=== PATIENT | female | born 1970 | race Caucasian/White ===

== ENCOUNTER 2020-09-30 09:36 | Outpatient (CLI) | payer OTHER ==
[2020-09-30 13:21] LABS: SARS-CoV-2 NAA Rapid Test Not Detected (NotDetected)
== END 2020-09-30 09:37 | disposition home or self-care (01) ==
LOC: LABBT 09:36
PROVIDERS: ATTEND Orthopaedic Surgery
DX: Z01.812 Encounter for preprocedural laboratory examination (principal); S82.51XA Displaced fracture of medial malleolus of right tibia, initial encounter for closed fracture; Z20.822 Contact with and (suspected) exposure to COVID-19
CPT/HCPCS: U0002

== ENCOUNTER 2020-10-01 06:04 | Day surgery (SDC) | payer OTHER ==
[2020-09-30 13:17] VITALS: BMI 34.7
[2020-10-01] MEDS ORDERED: Fentanyl 100 MCG/2 ML VIAL ONE ×3 (06:33→08:43)
[2020-10-01] MEDS ORDERED: Midazolam HCl 2 mg/2 ml Vial ONE (06:53)
[2020-10-01] MEDS ORDERED: Dexamethasone 4 mg/ml Vial ONE (06:53)
[2020-10-01] MEDS ORDERED: Scopolamine 1.5 mg/72 hour Patch ONE (07:03)
[2020-10-01] MEDS ORDERED: Ketorolac Tromethamine 30 MG/ML VIAL ONE (07:37)
[2020-10-01] MEDS ORDERED: PROPOFOL 200 MG/20 ML VIAL ONE (07:37)
[2020-10-01] MEDS ORDERED: Ondansetron PF 4 MG/2 ML Vial ONE (07:37)
[2020-10-01] MEDS ORDERED: Bupivacaine HCl 0.5%/Epinephrine 1:200,000/PF 30 ml Vial ONE (07:37)
[2020-10-01] MEDS ORDERED: HYDROcodone/Acetaminophen 5/325 mg Tablet ONE (09:52)
== END 2020-10-01 10:50 | disposition home or self-care (01) ==
LOC: SDC 06:04
PROVIDERS: ATTEND Orthopaedic Surgery
PROC: 0QSG04Z Reposition Right Tibia with Internal Fixation Device, Open Approach (ICD-10-PCS; principal; 2020-10-01)
DX: S82.51XA Displaced fracture of medial malleolus of right tibia, initial encounter for closed fracture (principal); G43.909 Migraine, unspecified, not intractable, without status migrainosus; I10 Essential (primary) hypertension; Z79.1 Long term (current) use of non-steroidal anti-inflammatories (NSAID); Z79.899 Other long term (current) drug therapy; Z91.040 Latex allergy status; Z91.041 Radiographic dye allergy status; W13.8XXA Fall from, out of or through other building or structure, initial encounter
CPT/HCPCS: 76000; C1713; J0690; J1100; J1885; J2250; J2405; J2704; J3010

== ENCOUNTER 2021-02-04 11:02 | Outpatient (CLI) | payer OTHER ==
[2021-02-04 23:19] LABS: SARS-CoV-2 PCR by NAA Not Detected (NotDetected)
== END 2021-02-04 11:03 | disposition home or self-care (01) ==
LOC: LABBT 11:02
PROVIDERS: ATTEND Orthopaedic Surgery
DX: Z01.812 Encounter for preprocedural laboratory examination (principal); T85.848A Pain due to other internal prosthetic devices, implants and grafts, initial encounter; Z20.822 Contact with and (suspected) exposure to COVID-19
CPT/HCPCS: U0003; U0005

== ENCOUNTER 2021-02-08 10:33 | Day surgery (SDC) | payer OTHER ==
[2021-02-07 13:22] VITALS: BMI 34.7
[2021-02-08] MEDS ORDERED: Lidocaine 1% (PF) 30 ML VIAL ONE (12:12)
[2021-02-08] MEDS ORDERED: Midazolam HCl 2 mg/2 ml Vial ONE (12:20)
[2021-02-08] MEDS ORDERED: Famotidine/PF 20 mg/2ml Vial ONE (12:20)
[2021-02-08] MEDS ORDERED: Scopolamine 1.5 mg/72 hour Patch ONE (12:20)
[2021-02-08] MEDS ORDERED: HYDROmorphone 2 MG/ML VIAL ONE (12:25)
[2021-02-08] MEDS ORDERED: Fentanyl 100 MCG/2 ML VIAL ONE ×4 (12:25→14:36)
[2021-02-08] MEDS ORDERED: Ondansetron PF 4 MG/2 ML Vial ONE (13:12)
[2021-02-08] MEDS ORDERED: Dexamethasone 20 MG/5 ML VIAL ONE (13:12)
[2021-02-08] MEDS ORDERED: PROPOFOL 200 MG/20 ML VIAL ONE (13:12)
[2021-02-08] MEDS ORDERED: Lidocaine 1% PF 5 ML VIAL ONE (13:12)
[2021-02-08] MEDS ORDERED: Bupivacaine PF 0.5% 30 ML VIAL ONE (13:22)
[2021-02-08] MEDS ORDERED: HYDROcodone/Acetaminophen 5/325 mg Tablet ONE (15:15)
== END 2021-02-08 16:40 | disposition home or self-care (01) ==
LOC: SDC 10:33
PROVIDERS: ATTEND Orthopaedic Surgery
PROC: 0SPF04Z Removal of Internal Fixation Device from Right Ankle Joint, Open Approach (ICD-10-PCS; principal; 2021-02-08)
DX: T84.84XA Pain due to internal orthopedic prosthetic devices, implants and grafts, initial encounter (principal); Z79.899 Other long term (current) drug therapy; Z91.013 Allergy to seafood; Z91.018 Allergy to other foods; Z91.040 Latex allergy status; Z91.041 Radiographic dye allergy status
CPT/HCPCS: 76000; J0690; J1100; J1170; J2001; J2250; J2405; J2704; J3010; S0020; S0028